=== PATIENT | male | born 1980 | race Caucasian/White ===

== ENCOUNTER 2019-05-04 01:43 | Observation (INO) | payer SELFPAY ==
[~2019-05-04] VITALS: Ht 182.9 cm; Wt 88.5 kg
[~2019-05-04 01:43] MED LIST: ASPIRIN325 MG PO; CATAPRES0.3 MG PO; CLONIDINE HCL0.1 MG PO; EFFIENT10 MG PO; HYDRALAZINE HCL25 MG PO; HYDROCHLOROTHIA25 MG PO; LIPITOR20 MG PO; METOPROLOL TART50 MG PO; NITROGLYCERIN1 EAC1 TOP; NORVASC10 MG PO; PROCARDIA XL90 MG PO; TENEX2 MG PO; TOPROL XL50 MG PO
--- OUTSIDE RECORDS SUMMARY | 2019-05-04 01:46 | XMS REPORT | Clinical Summary ---
Author Author [facility] Address Unknown Phone Unavailable Care Team Providers Care Lion Trainer Name Role Phone Alden Alcantara MD PCP Allergies Comments Active Allergy Reactions Severity Noted Date Nitroglycerin 03/22/2017 Medications End Date Status Medication Sig Dispensed Refills Start Date Active amLODIPine (NORVASC) 2.5 Take 1 tablet 0 07/04/ mg tablet by mouth 2 8 (two) times a day. Active carvedilol (COREG) 25 MG Take 1 tablet 2 tablet by mouth 2 8 (two) times a day. Active clonIDINE HCl (CATAPRES) Take 1 tablet 0 0.3 MG tablet by mouth 3 8 (three) times a day. Active traMADol (ULTRAM) 50 mg Take 50 mg by 0 tablet mouth 3 8 (three) times a day. Active aspirin (ECOTRIN) 325 MG Take 325 mg 0 enteric coated tablet by mouth daily. Active minoxidil (LONITEN) 2.5 Take 2.5 mg 0 MG tablet by mouth 2 (two) times a day. Active spironolactone Take 25 mg by 0 (ALDACTONE) 25 MG tablet mouth daily. Active clopidogrel (PLAVIX) 75 Take 75 mg by 0 mg tablet mouth daily. Active atorvastatin (LIPITOR) 20 Take 20 mg by 0 MG tablet mouth daily. Default OP ins Active NIFEdipine XL (PROCARDIA Take 60 mg by 0 XL) 60 MG 24 hr tablet mouth once. 08/04/2018 Discontinued (Stop Taking at Discharge) citalopram (CeleXA) 10 MG Take 1 tablet 0 tablet by mouth 8 every morning. 09/03/2018 PARoxetine (PAXIL) 20 MG Take 1 tablet 30 tablet 0 tablet (20 mg total) 8 by mouth nightly for 30 days. 08/07/2018 diazePAM (VALIUM) 2 MG Take 1 tablet 10 tablet 0 tablet (2 mg total) 8 by mouth every 8 (eight) hours as needed for anxiety for up to 3 days. 09/03/2018 minoxidil (LONITEN) 2.5 Take 2 120 tablet 0 MG tablet tablets (5 mg 8 total) by mouth 2 (two) times a day for 30 days. Active Problems Problem Noted Date Chest pain 08/03/2018 Cervical discitis 10/07/2015 Essential hypertension 10/07/2015 Herniated lumbar intervertebral disc 10/07/2015 Viral gastroenteritis 10/07/2015 Encounters Care Team Description Date Type Specialty Toni Tapia MD Kohlnhofer, Matthew, MD Chest pain, unspecified type (Primary Dx); Uncontrolled hypertension 08/03/2018 Emergency General Surgery - 08/04/2018 08/03/2018 Travel after 05/03/2018 Social History Date Tobacco Use Types Packs/Day Years Used Light Tobacco Smoker Electronic Cigarettes Smokeless Tobacco: Never Used Comments: rarely, socially Drinks/Week oz/Week Comments Alcohol Use Defer Sex Assigned at Date Recorded Not on file Industry Job Start Date Occupation Not on file Not on file Not on file Travel End Travel History Travel Start No recent travel history available. Last Filed Vital Signs Reading Time Taken Comments Vital Sign 137/86 08/04/2018 11:16 AM [employer] Blood Pressure 83 08/04/2018 3:42 PM [employer] Pulse 36.4 C (97.6 F) 08/04/2018 7:42 AM [employer] TE[employer] Temperature 16 08/04/2018 9:00 AM [employer]IOUR SUPPORT TE[employer]ER Respiratory Rate 95% 08/04/2018 11:16 AM BEHAVIOUR SUPPORT TEACHER Oxygen Saturation - - Inhaled Oxygen Concentration 102 kg (225 lb) 08/03/2018 7:11 PM [employer] TE[employer] Weight 193 cm (6' 4") 08/03/2018 7:11 PM [employer] TE[employer] Height 27.39 08/03/2018 7:11 PM [employer] TE[employer] Body Mass Index Plan of Treatment Care Team Description Date Type Specialty Alden Alcantara MD [address] [place] [address] [place] [address] [phone] 05/05/2019 Office Visit Internal Medicine Health Maintenance Due Date Last Done Comments INFLUENZA VACCINE 03/06/2019 Procedures Comments Procedure Name Priority Date/Time Associated Diagnosis TROPONIN Timed 08/04/2018 3:36 AM BEHAVIOUR SUPPORT TEACHER ESTIMATED GFR Timed 08/04/2018 3:36 AM BEHAVIOUR SUPPORT TEACHER COMPREHENSIVE METABOLIC Timed 08/04/2018 PANEL 3:36 AM BEHAVIOUR SUPPORT TEACHER HC COMPLETE BLD COUNT Timed 08/04/2018 W/AUTO DIFF 3:36 AM BEHAVIOUR SUPPORT TEACHER ECG 12-LEAD Routine 08/04/2018 12:23 AM BEHAVIOUR SUPPORT TEACHER TROPONIN Timed 08/03/2018 11:57 [address] [address] ANGIOGRAM PE CHEST STAT 08/03/2018 10:07 PM BEHAVIOUR SUPPORT TEACHER D-DIMER Routine 08/03/2018 8:40 PM BEHAVIOUR SUPPORT TEACHER XR CHEST 1 VW PORTABLE STAT 08/03/2018 7:36 PM BEHAVIOUR SUPPORT TEACHER ESTIMATED GFR STAT 08/03/2018 7:28 PM BEHAVIOUR SUPPORT TEACHER B NATRIURETIC PEPTIDE STAT 08/03/2018 7:28 PM BEHAVIOUR SUPPORT TEACHER TROPONIN STAT 08/03/2018 7:28 PM BEHAVIOUR SUPPORT TEACHER CREATINE KINASE, TOTAL STAT 08/03/2018 (CPK) 7:28 PM BEHAVIOUR SUPPORT TEACHER COMPREHENSIVE METABOLIC STAT 08/03/2018 PANEL 7:28 PM BEHAVIOUR SUPPORT TEACHER HC COMPLETE BLD COUNT STAT 08/03/2018 W/AUTO DIFF 7:28 PM BEHAVIOUR SUPPORT TEACHER ECG 12-LEAD STAT 08/03/2018 7:14 PM BEHAVIOUR SUPPORT TEACHER ECG ED PRELIMINARY Routine 08/03/2018 INTERPRETATION 7:11 PM BEHAVIOUR SUPPORT TEACHER after 05/03/2018 Results * Estimated GFR (08/04/2018 3:36 AM BEHAVIOUR SUPPORT TEACHER) Only the most recent of 2 results within the time period is included. Estimated GFR 57 (A) mL/min/1.73 m2 [place] Comment: GNOSTICISM [facility] rpretation G1 >=90 Normal or high G2 60-89Mildly decreased B1c40-44 Mildly to moderately decreased [id number] Moderately to severely decreased G4 15-29Severely decreased G5 <15Kidney failure The eGFR was calculated using the Chronic Kidney Disease Epidemiology Collaboration (CKD-EPI) equation. Interpretation is based on recommendations of the National Kidney Foundation-Kidney Disease Outcomes Quality Initiative (NKF-KDOQI) published in 2014. Specimen Plasma specimen Performing Organization Address City/[facility] Cent[facility] Phone Number [address] [place] [address] PATHOLOGY AND GENOMIC MEDICINE [address] * Troponin (08/04/2018 3:36 AM BEHAVIOUR SUPPORT TEACHER) Only the most recent of 3 results within the time period is included. [facility] Troponin <0.300 0.000 - 0.300 ng/mL [place] Comment: [facility] 0.30 - 1.49 [facility] ng/mlMay indicate increased risk of acute coronary syndrome. >=1.5 ng/ml Consistent with acute myocardial infarction. The diagnostic value of a single normal or non-diagnostic result is questionable.Serial samples at 2-6 hour intervals are required to rule out acute myocardial injury. Specimen Plasma specimen Performing Organization Address [facility] Cent[facility]ode Phone Number [address] [place] [address] PATHOLOGY AND GENOMIC MEDICINE [address] * CBC with platelet and differential (08/04/2018 3:36 AM BEHAVIOUR SUPPORT TEACHER) Only the most recent of 2 results within the time period is included. [facility] WBC 7.58 4.50 - 11.00 k/uL [facility] RBC 4.14 (L) 4.40 - 6.00 m/uL [facility] HGB 11.1 (L) 14.0 - 18.0 g/dL [facility] HCT 33.7 (L) 41.0 - 51.0 % [facility] MCV 81.4 (L) 82.0 - 100.0 fL [facility] MCH 26.8 (L) 27.0 - 34.0 pg [facility] MCHC 32.9 31.0 - 37.0 g/dL [facility] RDW - SD 42.2 37.0 - 55.0 fL [facility] MPV 9.7 8.8 - 13.2 fL [facility] Platelet count 311 150 - 400 k/uL [facility] Nucleated RBC 0.00 /100 WBC [facility] Neutrophils 69.1 (H) 39.0 - 69.0 % [facility] Lymphocytes 21.6 (L) 25.0 - 45.0 % [facility] Monocytes 6.3 0.0 - 10.0 % [facility] Eosinophils 1.6 0.0 - 5.0 % [facility] Basophils 0.5 0.0 - 1.0 % [facility] Specimen Blood Performing Organization Address City/State/Zipcode Phone Number [facility] [place] [id number] [place] [address] [place] [address] PATHOLOGY AND GENOMIC MEDICINE [address] * Comprehensive metabolic panel (08/04/2018 3:36 AM BEHAVIOUR SUPPORT TEACHER) Only the most recent of 2 results within the time period is included. Sodium 137 135 - 148 mEq/L [facility] Potassium 3.7 3.5 - 5.0 mEq/L [facility] Chloride 102 98 - 112 mEq/L [facility] CO2 21 (L) 24 - 31 mEq/L [facility] Anion gap 14@ANIO 7 - 15 mEq/L [facility] BUN 18 6 - 20 mg/dL [facility] Creatinine 1.50 (H) 0.70 - 1.20 mg/dL [facility] Glucose 162 (H) 65 - 99 mg/dL [facility] Calcium 9.0 8.3 - 10.2 mg/dL [facility] Protein 7.3 6.3 - 8.3 g/dL [place] Comment: [facility] 4.6-7.0 g/dL 1 week 4.4-7.6 g/dL 7 months-1year 5.1-7.3 g/dL 1-2 years5.6-7 .5 g/dL >3 years6.0-8 .0 g/dL 18-150 6.3-8.3 g/dL Albumin 4.1 3.5 - 5.0 g/dL [facility] A/G ratio 1.3 0.7 - 3.8 [facility] Alkaline 96 40 - 129 U/L [place] phosphatase [facility] AST 18 10 - 50 U/L [facility] ALT 18 5 - 50 U/L [facility] Total bilirubin 0.3 0.0 - 1.2 mg/dL [facility] Specimen Plasma specimen Performing Organization Address City/[facility] Centercode Phone Number [place] [address] [place] [address] PATHOLOGY AND GENOMIC MEDICINE [facility] [id number] [place] [address] [place] [address] [facility] * ECG 12 lead (08/04/2018 12:23 AM BEHAVIOUR SUPPORT TEACHER) Only the most recent of 2 results within the time period is included. Ventricular 69 [facility] rate Atrial rate 69 [facility] NM interval 176 [facility] QRSD interval 82 [facility] QT interval 424 [facility] QTC interval 454 [facility] P axis 1 40 [facility] QRS axis 1 -21 [facility] T wave axis 171 [facility] EKG impression Normal sinus rhythm with sinus H MUSE arrhythmia-Left ventricular hypertrophy with repolarization abnormality-possible lateral ischemia-Abnormal ECG-In automated comparison with ECG of 03-AUG-2018 19:14,-premature ventricular complexes are no longer present-Vent. rate has decreased BY56 BPM-ST no longer depressed in Anterior leads-Nonspecific T wave abnormality now evident in Inferior leads-T wave inversion more evident in Lateral leads- Specimen Narrative Performed At Performing Organization Address City/[facility] Centercode Phone Number [facility] [address] [employer] [address] [place] [address] * CT Angiogram Pe Chest (08/03/2018 10:07 PM BEHAVIOUR SUPPORT TEACHER) Specimen Narrative Performed At EXAMINATION:CT ANGIOGRAM PE CHEST [facility] CLINICAL HISTORY: PE suspectedintermediate probpositive D-dimer TECHNIQUE:CT angiographic images of the chest were obtained during intravenous administration of iodinated contrast. Computerized reformatted images and 3-D MIP images were also obtained and archived (CT pulmonary embolus protocol).CT scans are performed using radiation dose reduction techniques.Technical factors are evaluated and adjusted to ensure appropriate moderation of exposure.Automated dose management technology is applied to adjust radiation exposure while achieving a diagnostic quality image. COMPARISON:None. Findings: There are no filling defects within the pulmonary arterial system to suggest a pulmonary embolus. Evaluation for dissection is suboptimal on this phase of contrast. No aneurysm is seen. No consolidation or pleural effusion is seen. Small or trace pericardial effusion is noted. No pulmonary mass or nodule is seen. No mediastinal hematoma or lymphadenopathy is seen. Visualized upper abdomen shows no acute abnormality. IMPRESSION: 1. No evidence of pulmonary embolus. 2. Small or trace pericardial effusion. 3. Otherwise no acute abnormality identified in the chest [facility]-[id number] Procedure Note Interface, Radiology Results Incoming - 08/03/2018 10:24 PM BEHAVIOUR SUPPORT TEACHER EXAMINATION: CT ANGIOGRAM PE CHEST CLINICAL HISTORY: PE suspected intermediate prob positive D-dimer TECHNIQUE: CT angiographic images of the chest were obtained during intravenous administration of iodinated contrast. Computerized reformatted images and 3-D MIP images were also obtained and archived (CT pulmonary embolus protocol). CT scans are performed using radiation dose reduction techniques. Technical factors are evaluated and adjusted to ensure appropriate moderation of exposure. Automated dose management technology is applied to adjust radiation exposure while achieving a diagnostic quality image. COMPARISON: None. Findings: There are no filling defects within the pulmonary arterial system to suggest a pulmonary embolus. Evaluation for dissection is suboptimal on this phase of contrast. No aneurysm is seen. No consolidation or pleural effusion is seen. Small or trace pericardial effusion is noted. No pulmonary mass or nodule is seen. No mediastinal hematoma or lymphadenopathy is seen. Visualized upper abdomen shows no acute abnormality. IMPRESSION: 1. No evidence of pulmonary embolus. 2. Small or trace pericardial effusion. 3. Otherwise no acute abnormality identified in the chest [facility]-[id number] Performing Organization Address City/State/Zipcode Phone Number [facility] [address] [place] [address] * D-dimer (08/03/2018 8:40 PM BEHAVIOUR SUPPORT TEACHER) D-dimer 0.41 (H) 0.00 - 0.40 ug/mL [place] Comment: U [facility] Units are ug/ml Fibrinogen [facility] Unit. When combined with low clinical probability, D-dimer results of less than 0.5 ug/ml FEU have a good negativepredictive value in excluding PE or DVT. For D-dimer results greater than 0.5ug/ml FEU further testing is indicated if PE or DVT is suspectedclinically. Elevated D-dimer results have been reported in DVT, PE, and DIC cases and may indicate the presence of a clot. D-dimer results may be elevated due to old age, , inflammatory diseases, trauma, post-operative states, sepsis, and malignancies. Specimen Blood Performing Organization Address [facility] Centercode Phone Number [address] [place] [address] PATHOLOGY AND GENOMIC MEDICINE [address] * XR Chest 1 Vw Portable (08/03/2018 7:36 PM BEHAVIOUR SUPPORT TEACHER) Specimen Narrative Performed At EXAMINATION:XR CHEST 1 VW PORTABLE [facility] CLINICAL HISTORY:Shortness of breath COMPARISON:01/02/2013 IMPRESSION: Heart and mediastinum stable. Metal fragments are again noted in the left chest wall. No acute lung infiltrates are seen. [facility]-[id number] Procedure Note Interface, Radiology Results Incoming - 08/03/2018 7:50 PM BEHAVIOUR SUPPORT TEACHER EXAMINATION: XR CHEST 1 VW PORTABLE CLINICAL HISTORY: Shortness of breath COMPARISON: 01/02/2013 IMPRESSION: Heart and mediastinum stable. Metal fragments are again noted in the left chest wall. No acute lung infiltrates are seen. [facility]-[id number] Performing Organization Address City/[facility]/Zipcode Phone Number [facility] [address] [place] [address] * B natriuretic peptide (08/03/2018 7:28 PM BEHAVIOUR SUPPORT TEACHER) BNP 37 0 - 100 pg/mL [facility] Specimen Blood Performing Organization Address City/[facility]/Zipcode Phone Number [address] [place] [id number] PATHOLOGY AND GENOMIC MEDICINE [facility] [address] * Creatine kinase, total (CPK) (08/03/2018 7:28 PM BEHAVIOUR SUPPORT TEACHER) Creatine kinase 225 39 - 308 U/L [facility] Specimen Plasma specimen Performing Organization Address City/State/Zipcode Phone Number [facility] [place] [id number] [place] [address] [place] [address] PATHOLOGY AND GENOMIC MEDICINE [facility] [id number] [place] [address] * ECG ED Preliminary Interpretation - Not an Order (08/03/2018 7:11 PM BEHAVIOUR SUPPORT TEACHER) Narrative Performed At Toni Tapia MD 08/03/2018 10:31 PM ECG ED Preliminary Interpretation - Not an Order Performed by: Toni Tapia MD Authorized by: Toni Tapia MD ECG reviewed by ED Physician in the absence of a destination imagination coordinator: yes ([id number]) Interpretation: Interpretation: abnormal Rate: ECG rate:125 ECG rate assessment: tachycardic Rhythm: Rhythm: sinus tachycardia Ectopy: Ectopy: none QRS: QRS axis:Left Conduction: Conduction: normal ST segments: ST segments:Non-specific T waves: T waves: non-specific Other findings: Other findings: LVH after 05/03/2018 Advance Directives For more information, please contact: [phone] Patient Sales Consulting Director Explanation Type Date Recorded Advance Directives, Living Will and Medical Power of Charge Out Clerk Advance Directives, Living Will and Medical Power of Charge Out Clerk Date Inactivated Comments Code Status Date Activated 08/04/2018 9:19 PM Full Code 08/03/2018 11:22 PM Code Status decision reached by: Patient
--- OUTSIDE RECORDS SUMMARY | 2019-05-04 01:46 | XMS REPORT ---
Author [facility] Address Unknown Phone Unavailable Care Team Providers Care Instructor Programmable Controllers Name Role Phone Unavailable Unavailable Payers Payer Name Policy Type Policy Number Effective Date Expiration Date Problems This patient has no known problems. Allergies, Adverse Reactions, Alerts Allergy Name Allergy Type Status Severity Reaction(s) Onset Date Inactive Date Treating Clinician Comments nitroglycerin DA Active U 2017-03-22 00:00:00 Medications This patient has no known medications. Encounters Start Date/Time End Date/Time Encounter Type Admission Type Attending Clinicians [facility] Care Department Encounter ID 2019-04-08 20:45:00 2019-04-08 20:45:00 Outpatient E [facility] [id number] 2019-03-14 21:45:00 2019-03-14 21:45:00 Outpatient E [facility] [id number] 2019-02-07 16:49:00 2019-02-07 16:49:00 Emergency E [facility] [id number] 2019-01-13 18:32:00 2019-01-13 15:36:00 Inpatient E [facility] [id number] 2018-12-24 16:26:00 2018-12-24 16:26:00 Outpatient E [facility] [id number]
[2019-05-04] MEDS ORDERED: SODIUM CHLORIDE 0.9% 1000ML 1,000 ML IV STA (01:52)
[2019-05-04] MEDS ORDERED: ASPIRIN 81 MG CHEW TAB PO ONE ×2 (02:00→04:00)
[2019-05-04 02:35] LABS: BASOPHILS # (AUTO) 0.1 (0.0-0.1); BASOPHILS % 0.7 % (0.0-1.0); EOSINOPHILS # (AUTO) 0.1 (0.0-0.4); EOSINOPHILS % 0.7 % (0.0-6.0); HEMOGLOBIN 12.3 g/dL (14.0-18.0); LYMPHOCYTES # (AUTO) 1.6 (1.0-3.2); LYMPHOCYTES % 18.3 % (18.0-39.1); MEAN CORPUSCULAR HEMOGLOBIN 26.7 pg (28-32); MEAN CORPUSCULAR HGB CONC 35.1 g/dL (31-35); MEAN CORPUSCULAR VOLUME 76.1 fL (81-99); MONOCYTES # (AUTO) 0.4 (0.2-0.8); MONOCYTES % 4.3 % (4.4-11.3); NEUTROPHILS # (AUTO) 6.4 (2.1-6.9); NEUTROPHILS % 75.4 % (38.7-80.0); PLATELET COUNT 484 x10e3/uL (140-360); RED CELL DISTRIBUTION WIDTH 14.7 % (11.7-14.4)
[2019-05-04 02:49] LABS: ALANINE AMINOTRANSFERASE 17 IU/L (0-55); ALBUMIN 3.7 g/dL (3.5-5.0); ALBUMIN/GLOBULIN RATIO 0.9 (0.8-2.0); ALKALINE PHOSPHATASE 111 IU/L (40-150); BLOOD UREA NITROGEN 11 mg/dL (7-26); BUN/CREATININE RATIO 6 (6-25); CALCIUM 9.9 mg/dL (8.4-10.2); CARBON DIOXIDE 20 mmol/L (22-29); CHLORIDE 102 mmol/L (98-107); CREATINE KINASE 49 IU/L (30-200); CREATININE, SERUM 1.74 mg/dL (0.72-1.25); EST GLOMERULAR FILTRATION RATE 43 ML/MIN (60-); GLUCOSE 204 mg/dL (74-118); SODIUM 138 mmol/L (136-145)
--- NOTE | 2019-05-04 03:02 | Diagnostic Imaging Report ---
EXAMINATION: CHEST SINGLE (PORTABLE) INDICATION: ^ERMD ORDER ^[id number] ^0217 ^Y COMPARISON: 03/05/2015 FINDINGS: AP view TUBES and LINES: None. LUNGS: Lungs are well inflated. There is no evidence of pneumonia or pulmonary edema. Metallic fragments projecting over left lung. Minimal left upper lobe scarring, unchanged. PLEURA: No pleural effusion or pneumothorax. HEART AND MEDIASTINUM: The cardiomediastinal silhouette is mildly prominent on this AP view.. BONES AND SOFT TISSUES: No acute osseous lesion. Soft tissues are unremarkable. UPPER ABDOMEN: No free air under the diaphragm. IMPRESSION: No acute thoracic abnormality. Signed by: Dr. Bonilla Uribe MD on 05/04/2019 2:58 AM
[2019-05-04] MEDS ORDERED: ONDANSETRON HCL INJ 2MG/ML 2ML 2 MG/ML VIAL ONE (03:09)
[2019-05-04] MEDS ORDERED: MORPHINE SULFATE INJ 4 MG/ML INJ 1ML ONE (03:18)
[2019-05-04] MEDS ORDERED: MORPHINE SULFATE 2 MG/ML SYR 1ML ONE (03:19)
[2019-05-04] MEDS ORDERED: ONDANSETRON HCL INJ 2MG/ML 2ML 2 MG/ML VIAL IV STA (03:28)
[2019-05-04] MEDS ORDERED: MORPHINE SULFATE INJ 4 MG/ML INJ 1ML IV ONE (03:30)
--- OUTSIDE RECORDS SUMMARY | 2019-05-04 03:57 | XMS REPORT | Clinical Summary ---
Author Author [facility] Address Unknown Phone Unavailable Care Team Providers Care Cuff Slitter Name Role Phone Alden Alcantara MD PCP [...] Comments Vital Sign 137/86 08/04/2018 11:16 AM BUSINESS APPLICATIONS MANAGER Blood Pressure 83 08/04/2018 3:42 PM BUSINESS APPLICATIONS MANAGER Pulse 36.4 C (97.6 F) 08/04/2018 7:42 AM BUSINESS APPLICATIONS MANAGER Temperature 16 08/04/2018 9:00 AM BUSINESS APPLICATIONS MANAGER Respiratory Rate 95% 08/04/2018 11:16 AM BUSINESS APPLICATIONS MANAGER Oxygen Saturation - - Inhaled Oxygen Concentration 102 kg (225 lb) 08/03/2018 7:11 PM BUSINESS APPLICATIONS MANAGER Weight 193 cm (6' 4") 08/03/2018 7:11 PM BUSINESS APPLICATIONS MANAGER Height 27.39 08/03/2018 7:11 PM BUSINESS APPLICATIONS MANAGER Body Mass Index Plan of Treatment Care Team Description Date Type Specialty Alden Alcantara MD [address] [place] [address] [place] [address] [phone] 05/05/2019 Office Visit Internal Medicine Health Maintenance Due Date Last Done Comments INFLUENZA VACCINE 03/06/2019 Procedures Comments Procedure Name Priority Date/Time Associated Diagnosis TROPONIN Timed 08/04/2018 3:36 AM BUSINESS APPLICATIONS MANAGER ESTIMATED GFR Timed 08/04/2018 3:36 AM BUSINESS APPLICATIONS MANAGER COMPREHENSIVE METABOLIC Timed 08/04/2018 PANEL 3:36 AM BUSINESS APPLICATIONS MANAGER HC COMPLETE BLD COUNT Timed 08/04/2018 W/AUTO DIFF 3:36 AM BUSINESS APPLICATIONS MANAGER ECG 12-LEAD Routine 08/04/2018 12:23 AM BUSINESS APPLICATIONS MANAGER TROPONIN Timed 08/03/2018 11:57 [address] APPLICATIONS [address] ANGIOGRAM PE CHEST STAT 08/03/2018 10:07 PM BUSINESS APPLICATIONS MANAGER D-DIMER Routine 08/03/2018 8:40 PM BUSINESS APPLICATIONS MANAGER XR CHEST 1 VW PORTABLE STAT 08/03/2018 7:36 PM BUSINESS APPLICATIONS MANAGER ESTIMATED GFR STAT 08/03/2018 7:28 PM BUSINESS APPLICATIONS MANAGER B NATRIURETIC PEPTIDE STAT 08/03/2018 7:28 PM BUSINESS APPLICATIONS MANAGER TROPONIN STAT 08/03/2018 7:28 PM BUSINESS APPLICATIONS MANAGER CREATINE KINASE, TOTAL STAT 08/03/2018 (CPK) 7:28 PM BUSINESS APPLICATIONS MANAGER COMPREHENSIVE METABOLIC STAT 08/03/2018 PANEL 7:28 PM BUSINESS APPLICATIONS MANAGER HC COMPLETE BLD COUNT STAT 08/03/2018 W/AUTO DIFF 7:28 PM BUSINESS APPLICATIONS MANAGER ECG 12-LEAD STAT 08/03/2018 7:14 PM BUSINESS APPLICATIONS MANAGER ECG ED PRELIMINARY Routine 08/03/2018 INTERPRETATION 7:11 PM BUSINESS APPLICATIONS MANAGER after 05/03/2018 Results * Estimated GFR (08/04/2018 3:36 AM BUSINESS APPLICATIONS MANAGER) Only the most recent of 2 results within the time period is included. Estimated GFR 57 (A) mL/min/1.73 m2 [place] Comment: [facility] rpretation G1 >=90 Normal or high G2 60-89Mildly decreased [id number] Mildly to moderately decreased D2j75-90 Moderately to severely decreased G4 15-29Severely decreased G5 <15Kidney failure The eGFR was calculated using the Chronic Kidney Disease Epidemiology Collaboration (CKD-EPI) equation. Interpretation is based on recommendations of the National Kidney Foundation-Kidney Disease Outcomes Quality Initiative (NKF-KDOQI) published in 2014. Specimen Plasma specimen Performing Organization Address City/[facility] Phone Number [address] [place] [address] PATHOLOGY AND GENOMIC MEDICINE [address] * Troponin (08/04/2018 3:36 AM BUSINESS APPLICATIONS MANAGER) Only the most recent of 3 results within the time period is included. [facility] Troponin <0.300 0.000 - 0.300 ng/mL [place] Comment: [facility] 0.30 - 1.49 [facility] ng/mlMay indicate increased risk of acute coronary syndrome. >=1.5 ng/ml Consistent with acute myocardial infarction. The diagnostic value of a single normal or non-diagnostic result is questionable.Serial samples at 2-6 hour intervals are required to rule out acute myocardial injury. Specimen Plasma specimen Performing Organization Address [facility] Phone Number [address] [place] [address] PATHOLOGY AND GENOMIC MEDICINE [address] * CBC with platelet and differential (08/04/2018 3:36 AM BUSINESS APPLICATIONS MANAGER) Only the most recent of 2 results within the time period is included. [facility] WBC 7.58 4.50 - 11.00 k/uL [facility] RBC 4.14 (L) 4.40 - 6.00 m/uL [facility] HGB 11.1 (L) 14.0 - 18.0 g/dL [facility] HCT 33.7 (L) 41.0 - 51.0 % [facility] MCV 81.4 (L) 82.0 - 100.0 fL [facility] MCH 26.8 (L) 27.0 - 34.0 pg [facility] MCHC 32.9 31.0 - 37.0 g/dL [facility] RDW - SD 42.2 37.0 - 55.0 fL [facility] MPV 9.7 8.8 - 13.2 fL [facility] Platelet count 311 150 - 400 k/uL [facility] Nucleated RBC 0.00 /100 WBC [facility] Neutrophils 69.1 (H) 39.0 - 69.0 % [facility] Lymphocytes 21.6 (L) 25.0 - 45.0 % [facility] Monocytes 6.3 0.0 - 10.0 % [facility] Eosinophils 1.6 0.0 - 5.0 % [facility] Basophils 0.5 0.0 - 1.0 % [facility] Specimen Blood Performing Organization Address City/State/Zipcode Phone Number [facility] [place] [id number] [place] [address] [place] [address] PATHOLOGY AND GENOMIC MEDICINE [address] * Comprehensive metabolic panel (08/04/2018 3:36 AM BUSINESS APPLICATIONS MANAGER) Only the most recent of 2 results within the time period is included. Sodium 137 135 - 148 mEq/L [facility] Potassium 3.7 3.5 - 5.0 mEq/L [facility] Chloride 102 98 - 112 mEq/L [facility] CO2 21 (L) 24 - 31 mEq/L [facility] Anion gap 14@ANIO 7 - 15 mEq/L [facility] BUN 18 6 - 20 mg/dL [facility] Creatinine 1.50 (H) 0.70 - 1.20 mg/dL [facility] Glucose 162 (H) 65 - 99 mg/dL [facility] Calcium 9.0 8.3 - 10.2 mg/dL [facility] Protein 7.3 6.3 - 8.3 g/dL [place] Comment: [facility] 4.6-7.0 g/dL 1 week 4.4-7.6 g/dL 7 months-1year 5.1-7.3 g/dL 1-2 years5.6-7 .5 g/dL >3 years6.0-8 .0 g/dL 18-150 6.3-8.3 g/dL Albumin 4.1 3.5 - 5.0 g/dL [facility] A/G ratio 1.3 0.7 - 3.8 [facility] Alkaline 96 40 - 129 U/L [place] phosphatase [facility] AST 18 10 - 50 U/L [facility] ALT 18 5 - 50 U/L [facility] Total bilirubin 0.3 0.0 - 1.2 mg/dL [facility] Specimen Plasma specimen Performing Organization Address City/[facility] Centercode Phone Number [place] [address] [place] [address] PATHOLOGY AND GENOMIC MEDICINE [facility] [id number] [place] [address] [place] [address] [facility] * ECG 12 lead (08/04/2018 12:23 AM BUSINESS APPLICATIONS MANAGER) Only the most recent of 2 results within the time period is included. Ventricular 69 [facility] rate Atrial rate 69 [facility] [place] interval 176 [facility] QRSD interval 82 [...] Specimen Narrative Performed At Performing Organization Address City/[facility] Phone Number [facility] [employer] [address] [place] [address] * CT Angiogram Pe Chest (08/03/2018 10:07 PM BUSINESS APPLICATIONS MANAGER) Specimen Narrative Performed At EXAMINATION:[facility]: PE suspectedintermediate probpositive [...] no acute abnormality identified in the chest [facility]-[id number] Procedure Note Interface, Radiology Results Incoming - 08/03/2018 10:24 PM BUSINESS APPLICATIONS MANAGER EXAMINATION: CT ANGIOGRAM PE CHEST CLINICAL HISTORY: [...] no acute abnormality identified in the chest [facility]-[id number] Performing Organization Address City/State/Zipcode Phone Number [facility] [address] [place] [address] * D-dimer (08/03/2018 8:40 PM BUSINESS APPLICATIONS MANAGER) D-dimer 0.41 (H) 0.00 - 0.40 ug/mL [place] Comment: U [facility] Units are ug/ml Fibrinogen [facility] Unit. When combined with low clinical probability, [...] and malignancies. Specimen Blood Performing Organization Address [facility] Centercode Phone Number [address] [place] [address] PATHOLOGY AND GENOMIC MEDICINE [address] * XR Chest 1 Vw Portable (08/03/2018 7:36 PM BUSINESS APPLICATIONS MANAGER) Specimen Narrative Performed At EXAMINATION:XR CHEST 1 VW PORTABLE [facility] CLINICAL HISTORY:Shortness of breath COMPARISON:01/02/2013 IMPRESSION: Heart and mediastinum stable. Metal fragments are again noted in the left chest wall. No acute lung infiltrates are seen. [facility]-[id number] Procedure Note Interface, Radiology Results Incoming - 08/03/2018 7:50 PM BUSINESS APPLICATIONS MANAGER EXAMINATION: XR CHEST 1 VW PORTABLE CLINICAL HISTORY: Shortness of breath COMPARISON: 01/02/2013 IMPRESSION: Heart and mediastinum stable. Metal fragments are again noted in the left chest wall. No acute lung infiltrates are seen. [facility]-[id number] Performing Organization Address City/[facility]/Zipcode Phone Number [facility] [address] [place] [address] * B natriuretic peptide (08/03/2018 7:28 PM BUSINESS APPLICATIONS MANAGER) BNP 37 0 - 100 pg/mL [facility] Specimen Blood Performing Organization Address City/[facility]/Zipcode Phone Number [address] [place] [id number] PATHOLOGY AND GENOMIC MEDICINE [facility] [address] [place] [address] * Creatine kinase, total (CPK) (08/03/2018 7:28 PM BUSINESS APPLICATIONS MANAGER) Creatine kinase 225 39 - 308 U/L [facility] Specimen Plasma specimen Performing Organization Address City/State/Zipcode Phone Number [facility] [place] [id number] [place] [address] [place] [address] PATHOLOGY AND GENOMIC MEDICINE [facility] [id number] [place] [address] * ECG ED Preliminary Interpretation - Not an Order (08/03/2018 7:11 PM BUSINESS APPLICATIONS MANAGER) Narrative Performed At Toni Tapia MD 08/03/2018 10:31 PM ECG ED Preliminary Interpretation - Not an Order Performed by: Toni Tapia MD Authorized by: Toni Tapia MD ECG reviewed by ED Physician in the absence of a home health nurse licensed practical: yes ([id number]) Interpretation: Interpretation: abnormal Rate: ECG rate:125 ECG rate assessment: tachycardic Rhythm: Rhythm: sinus tachycardia Ectopy: Ectopy: none QRS: QRS axis:Left Conduction: Conduction: normal ST segments: ST segments:Non-specific T waves: T waves: non-specific Other findings: Other findings: LVH after 05/03/2018 Advance Directives For more information, please contact: [phone] Patient [employer] Explanation Type Date Recorded Advance Directives, Living Will and Medical Power of Manager Medicare Marketing Advance Directives, Living Will and Medical Power of Manager Medicare Marketing Date Inactivated Comments Code Status Date Activated 08/04/2018 9:19 PM Full Code 08/03/2018 11:22 PM Code Status decision reached by: Patient
[2019-05-04] MEDS ORDERED: METOPROLOL TARTRATE 25 MG TAB PO SCH (04:00)
--- NOTE | 2019-05-04 04:55 | NUR ---
PT STATES THAT HE DOESN'T WANT TO WAIT FOR A BED. AND THAT HIS DOCTORS ARE AT [place]. GOVERNMENT EMPLOYEE WAS NOTIFIED AND A BED WAS ASSIGNED. TOLD PT ABOUT BED ASSIGNMENT. PT STATES THAT HE DOES NOT WANT TO STAY HERE. AMA WAS SIGNED. LT HAND 20G PIV DISCONTINUED, CATH INTACT. SITE WITHOUT COMPLICATIONS. PT AMBULATED OUT TO PRIVATE CAR WITH SPOUSE, NO S/S DISTRESS NOTED.
[2019-05-04] MEDS ORDERED: ASPIRIN 81 MG ENTERIC COATED PO SCH (09:00)
== END 2019-05-04 05:00 | disposition left against medical advice (07) ==
LOC: ER 01:43 → EDBD 01:43 → ERHOLD 03:54
PROVIDERS: ADMIT Family Medicine; ATTEND Family Medicine
DX: R07.9 Chest pain, unspecified (principal); I12.0 Hypertensive chronic kidney disease with stage 5 chronic kidney disease or end stage renal disease; N18.6 End stage renal disease; Z99.2 Dependence on renal dialysis; E78.5 Hyperlipidemia, unspecified; I25.2 Old myocardial infarction; G47.00 Insomnia, unspecified; I25.10 Atherosclerotic heart disease of native coronary artery without angina pectoris; Z95.5 Presence of coronary angioplasty implant and graft
CPT/HCPCS: 36415; 71045; 80053; 82550; 82553; 83880; 84484; 85025; 93005; 99284; G0378; J2270 ×2; J2405; J7030

== ENCOUNTER 2021-11-28 23:55 | Inpatient (IN) | payer SELFPAY ==
[~2021-11-28] VITALS: Ht 182.9 cm; Wt 79.4 kg
[~2021-11-28 23:55] MED LIST changes: +CEFDINIR300 MG PO; +KETOROLAC TROME10 MG PO
[2021-11-28] MEDS ORDERED: ONDANSETRON HCL INJ 2MG/ML 2ML 2 MG/ML VIAL IV STA (23:59)
[2021-11-29] VITALS (19 sets, daily range): BP systolic 139–185; BP diastolic 95–126
[2021-11-29] MEDS ORDERED: Morphine 4mg Syringe 4 MG/ML INJ IV ONE
[2021-11-29] MEDS ORDERED: ASPIRIN 325 MG TAB PO STA
[2021-11-29] MEDS ORDERED: Morphine 4mg Syringe 4 MG/ML INJ ONE ×2 (00:12→11:42)
[2021-11-29] MEDS ORDERED: ONDANSETRON HCL INJ 2MG/ML 2ML 2 MG/ML VIAL ONE (00:12)
[2021-11-29] MEDS ORDERED: SODIUM CHLORIDE 0.9% 1000ML 1,000 ML ONE ×2 (00:13→08:45)
[2021-11-29 00:16] LABS: BASOPHILS # (AUTO) 0.1 (0.0-0.1); BASOPHILS % 0.9 % (0.0-1.0); EOSINOPHILS # (AUTO) 0.3 (0.0-0.4); EOSINOPHILS % 3.2 % (0.0-6.0); HEMATOCRIT 28.8 % (38.2-49.6); HEMOGLOBIN 8.2 g/dL (14.0-18.0); LYMPHOCYTES # (AUTO) 1.5 (1.0-3.2); LYMPHOCYTES % 14.4 % (18.0-39.1); MEAN CORPUSCULAR HEMOGLOBIN 21.8 pg (28-32); MEAN CORPUSCULAR HGB CONC 28.5 g/dL (31-35); MEAN CORPUSCULAR VOLUME 76.4 fL (81-99); MONOCYTES # (AUTO) 0.4 (0.2-0.8); NEUTROPHILS % 77.1 % (38.7-80.0); PLATELET COUNT 514 x10e3/uL (140-360); RED BLOOD COUNT 3.77 x10e6/uL (4.3-5.7); RED CELL DISTRIBUTION WIDTH 18.6 % (11.7-14.4)
[2021-11-29 00:25] LABS: INR 1.01; PROTHROMBIN TIME 14.2 seconds (11.9-14.5)
[2021-11-29 00:26] LABS: AMPHETAMINES SCREEN,URINE NEGATIVE (NEGATIVE); BENZODIAZEPINES SCREEN,URINE NEGATIVE (NEGATIVE); PHENCYCLIDINE SCREEN,URINE NEGATIVE (NEGATIVE)
[2021-11-29] MEDS ORDERED: HYDRALAZINE HCL 20 MG/ML VIAL IV STA (00:27)
[2021-11-29 00:32] LABS: POTASSIUM 4.1 mmol/L (3.5-5.1)
[2021-11-29 00:34] LABS: ALBUMIN 3.9 g/dL (3.5-5.0); ALBUMIN/GLOBULIN RATIO 0.9 (0.8-2.0); ANION GAP 16.1 mmol/L (8-16); CALCIUM 9.3 mg/dL (8.4-10.2); CREATININE, SERUM 1.8 mg/dL (0.72-1.25)
[2021-11-29 00:39] LABS: BACTERIA,URINE FEW /HPF; CLARITY,URINE CLEAR (CLEAR); COLOR,URINE YELLOW (YELLOW); EPITHELIAL CELLS,URINE FEW /LPF; KETONES,URINE NEGATIVE (NEGATIVE); LEUKOCYTE ESTERASE ,URINE NEGATIVE (NEGATIVE); NITRITE,URINE NEGATIVE (NEGATIVE); PROTEIN,URINE DIPSTICK 1+ (NEGATIVE); URINE UROBILINOGEN 0.2 mg/dL (0.2 - 1); WBC,URINE (MAN) 0-5 /HPF (0-5)
[2021-11-29 00:40] LABS: CREATINE KINASE MB 2.7 ng/mL (0-5.0)
[2021-11-29] MEDS ORDERED: FENTANYL CITRATE/PF 100MCG/2 ML INJ IV STA (00:42)
[2021-11-29] MEDS ORDERED: NICARDIPINE 20MG/200ML PREMIX 200 ML IV SCH (00:45)
[2021-11-29] MEDS ORDERED: FUROSEMIDE INJ 10 MG/ML 4 ML VIAL IV SCH (01:00)
[2021-11-29] MEDS ORDERED: Morphine 4mg Syringe 4 MG/ML INJ IV PRN ×2 (02:00→11:15)
[2021-11-29] MEDS ORDERED: HEPARIN 25,000 UNIT 900 UNIT in DEXTROSE 5% 250ML 250 ML IV SCH (02:00)
[2021-11-29] MEDS ORDERED: HEPARIN SOD (PORCINE) 5,000 UNIT/ML VIAL IV ONE (02:00)
[2021-11-29] MEDS ORDERED: ONDANSETRON HCL INJ 2MG/ML 2ML 2 MG/ML VIAL IV PRN (02:00)
[2021-11-29 02:48] LABS: CREATINE KINASE MB 2.4 ng/mL (0-5.0)
[2021-11-29] MEDS ORDERED: HYDROMORPHONE 2MG/ML 2 MG/ML ML ONE (03:52)
[2021-11-29] MEDS ORDERED: HEPARIN 25,000 UNIT DRIP IV ONE (03:54)
[2021-11-29] MEDS ORDERED: HYDROMORPHONE 1MG/1ML INJ IV PRN (04:15)
[2021-11-29] MEDS ORDERED: IOPAMIDOL 370 MG/ML 100 ML INFUS..BTL INJ ONE ×3 (06:26→10:09)
[2021-11-29] MEDS ORDERED: HYDROMORPHONE 1MG/1ML INJ IV STA (08:04)
[2021-11-29] MEDS ORDERED: NITROGLYCERIN/D5W 200 MCG/ML 250 ML ONE (08:45)
[2021-11-29] MEDS ORDERED: HEPARIN SOD (PORCINE) 1000 UNIT/ML 30ML ONE (08:45)
[2021-11-29] MEDS ORDERED: ACETAMINOPHEN 325 MG TAB PO PRN (08:45)
[2021-11-29] MEDS ORDERED: LIDOCAINE HCL 2% LOCAL 20 ML VIAL ONE (08:45)
[2021-11-29] MEDS ORDERED: HEPARIN SOD/SOD CHLORIDE 2,000 ML ONE (08:45)
[2021-11-29] MEDS ORDERED: NITROGLYCERIN 0.4 MG SUBL SL PRN (09:00)
[2021-11-29] MEDS ORDERED: MIDAZOLAM HCL 2 MG/2 ML VIAL ONE ×2 (09:02→10:06)
[2021-11-29] MEDS ORDERED: VERAPAMIL HCL 2.5 MG/ML 2 ML VIAL ONE (09:02)
[2021-11-29] MEDS ORDERED: FENTANYL CITRATE/PF 100MCG/2 ML INJ ONE (09:03)
[2021-11-29 10:09] LABS: CREATININE,URINE RANDOM 89.34 mg/dL (63-166); TOTAL PROTEIN, URINE 30.8 mg/dL (1-14)
[2021-11-29] MEDS ORDERED: TICAGRELOR 90 MG TABLET ONE (10:24)
[2021-11-29] MEDS ORDERED: COREG12.5 MG PO (12:31)
[2021-11-29] MEDS ORDERED: HYDRALAZINE HCL 20 MG/ML VIAL IV PRN (13:45)
[2021-11-29] MEDS ORDERED: CLONIDINE HCL 0.1 MG TAB ONE (13:58)
[2021-11-29] MEDS ORDERED: HYDRALAZINE HCL 20 MG/ML VIAL ONE (14:08)
[2021-11-29] MEDS ORDERED: NICARDIPINE 20MG/200ML PREMIX 200 ML ONE (14:21)
[2021-11-29] MEDS ORDERED: CLONIDINE HCL 0.3 MG TAB PO SCH (15:00)
[2021-11-29] MEDS ORDERED: AMLODIPINE BESYLATE 5 MG TAB PO SCH (17:00)
[2021-11-29] MEDS ORDERED: CARVEDILOL 12.5 MG TAB PO SCH (17:00)
[2021-11-30] MEDS ORDERED: ASPIRIN 325 MG TAB PO SCH (09:00)
[2021-11-30] MEDS ORDERED: HYDRALAZINE HCL 100 MG TABLET PO SCH (21:00)
== END 2021-11-29 13:30 | disposition left against medical advice (07) | DRG 246 ==
LOC: ER 11-29 00:05 → ERHOLD 11-29 01:53
PROVIDERS: ADMIT Internal Medicine; ATTEND Internal Medicine
PROC: 027035Z Dilation of Coronary Artery, One Artery with Two Drug-eluting Intraluminal Devices, Percutaneous Approach (ICD-10-PCS; principal; 2021-11-29)
PROC: 4A023N7 Measurement of Cardiac Sampling and Pressure, Left Heart, Percutaneous Approach (ICD-10-PCS; 2021-11-29)
PROC: B2111ZZ Fluoroscopy of Multiple Coronary Arteries using Low Osmolar Contrast (ICD-10-PCS; 2021-11-29)
DX: T82.855A Stenosis of coronary artery stent, initial encounter (principal); I21.4 Non-ST elevation (NSTEMI) myocardial infarction; I16.1 Hypertensive emergency; I25.110 Atherosclerotic heart disease of native coronary artery with unstable angina pectoris; Z20.822 Contact with and (suspected) exposure to COVID-19; I12.9 Hypertensive chronic kidney disease with stage 1 through stage 4 chronic kidney disease, or unspecified chronic kidney disease; N18.30 Chronic kidney disease, stage 3 unspecified; D64.9 Anemia, unspecified; E78.5 Hyperlipidemia, unspecified; Z88.8 Allergy status to other drugs, medicaments and biological substances; Y71.1 Therapeutic (nonsurgical) and rehabilitative cardiovascular devices associated with adverse incidents; I25.2 Old myocardial infarction
CPT/HCPCS: 36415; 71045; 71275; 80053; 80307; 80320; 81001; 82270; 82550; 82553; 82570; 83690; 83880; 84156; 84484; 85025; 85379; 85610; 85730; 86850; 86900; 92920; 92928; 93005; 93306; 93458; 94799; 99152; 99153; 99285; C1725; C1769; C1874; C1887; J0360; J1170; J1644; J1940; J2001; J2250; J2270; J2405; J3010; J7030; Q9967; U0002

== ENCOUNTER 2022-01-17 01:56 | Observation (INO) | payer SELFPAY ==
[~2022-01-17] VITALS: Ht 182.9 cm; Wt 79.4 kg
[~2022-01-17 01:56] MED LIST changes: +COREG12.5 MG PO
[2022-01-17] MEDS ORDERED: CLONIDINE HCL 0.1 MG TAB PO ONE (02:15)
[2022-01-17] MEDS ORDERED: NICARDIPINE 20MG/200ML PREMIX 200 ML IV SCH (02:15)
[2022-01-17 02:20] LABS: BASOPHILS # (AUTO) 0.1 (0.0-0.1); BASOPHILS % 0.8 % (0.0-1.0); EOSINOPHILS # (AUTO) 0.1 (0.0-0.4); EOSINOPHILS % 1.8 % (0.0-6.0); HEMATOCRIT 25.9 % (38.2-49.6); HEMOGLOBIN 7.3 g/dL (14.0-18.0); LYMPHOCYTES # (AUTO) 0.9 (1.0-3.2); LYMPHOCYTES % 12.9 % (18.0-39.1); MEAN CORPUSCULAR HEMOGLOBIN 20.7 pg (28-32); MEAN CORPUSCULAR HGB CONC 28.2 g/dL (31-35); MEAN CORPUSCULAR VOLUME 73.4 fL (81-99); MONOCYTES # (AUTO) 0.3 (0.2-0.8); MONOCYTES % 4.1 % (4.4-11.3); NEUTROPHILS # (AUTO) 5.8 (2.1-6.9); NEUTROPHILS % 80.1 % (38.7-80.0); PLATELET COUNT 428 x10e3/uL (140-360); RED BLOOD COUNT 3.53 x10e6/uL (4.3-5.7); RED CELL DISTRIBUTION WIDTH 16.2 % (11.7-14.4)
[2022-01-17] MEDS ORDERED: CLONIDINE HCL 0.1 MG TAB ONE (02:21)
[2022-01-17] MEDS ORDERED: NICARDIPINE 20MG/200ML PREMIX 200 ML ONE (02:25)
[2022-01-17 02:38] LABS: ALBUMIN 3.7 g/dL (3.5-5.0); ALBUMIN/GLOBULIN RATIO 0.9 (0.8-2.0); ALKALINE PHOSPHATASE 86 IU/L (40-150); ANION GAP 17.7 mmol/L (8-16); BLOOD UREA NITROGEN 18 mg/dL (7-26); BUN/CREATININE RATIO 10 (6-25); CALCIUM 9.2 mg/dL (8.4-10.2); CARBON DIOXIDE 18 mmol/L (22-29); CHLORIDE 109 mmol/L (98-107); CREATININE, SERUM 1.89 mg/dL (0.72-1.25); GLUCOSE 196 mg/dL (74-118); POTASSIUM 3.7 mmol/L (3.5-5.1); SODIUM 141 mmol/L (136-145)
[2022-01-17 02:41] LABS: ALANINE AMINOTRANSFERASE < 6 IU/L (0-55)
[2022-01-17] MEDS ORDERED: Morphine 4mg INJECTION 4 MG/ML INJ IV PRN (03:15)
[2022-01-17] MEDS ORDERED: FENTANYL CITRATE/PF 100MCG/2 ML INJ ONE (03:16)
[2022-01-17] MEDS ORDERED: ONDANSETRON HCL INJ 2MG/ML 2ML 2 MG/ML VIAL ONE (03:16)
[2022-01-17] MEDS ORDERED: LACTATED RINGER'S 500 ML IV ONE (03:30)
[2022-01-17] MEDS ORDERED: HYDRALAZINE HCL 20 MG/ML VIAL ONE (03:35)
[2022-01-17] MEDS ORDERED: ONDANSETRON HCL INJ 2MG/ML 2ML 2 MG/ML VIAL IV STA (03:35)
[2022-01-17] MEDS ORDERED: HYDRALAZINE HCL 20 MG/ML VIAL IV STA (03:35)
[2022-01-17] MEDS ORDERED: IOPAMIDOL 370 MG/ML 100 ML INFUS..BTL INJ ONE (03:37)
[2022-01-17] MEDS ORDERED: SODIUM CHLORIDE 0.9% 100 ML ONE (03:37)
[2022-01-17] MEDS ORDERED: ONDANSETRON HCL INJ 2MG/ML 2ML 2 MG/ML VIAL IV PRN (03:45)
[2022-01-17] MEDS ORDERED: FENTANYL CITRATE/PF 100MCG/2 ML INJ IV ONE (03:45)
[2022-01-17] MEDS ORDERED: HYDRALAZINE HCL 20 MG/ML VIAL IV PRN (03:45)
[2022-01-17] MEDS ORDERED: SODIUM CHLORIDE 0.9% 500ML 500 ML IV ONE (04:00)
[2022-01-17] MEDS ORDERED: SODIUM CHLORIDE 0.9% 500ML 500 ML ONE (04:02)
[2022-01-17] MEDS ORDERED: HALOPERIDOL LACTATE 5 MG/ML VIAL IV ONE (04:30)
== END 2022-01-17 04:50 | disposition left against medical advice (07) ==
LOC: ER 02:07 → ERHOLD 03:05
PROVIDERS: ADMIT Family Medicine; ATTEND Family Medicine
DX: R07.9 Chest pain, unspecified (principal); I13.2 Hypertensive heart and chronic kidney disease with heart failure and with stage 5 chronic kidney disease, or end stage renal disease; N18.6 End stage renal disease; I50.9 Heart failure, unspecified; I25.2 Old myocardial infarction; E78.5 Hyperlipidemia, unspecified; G47.00 Insomnia, unspecified; I25.10 Atherosclerotic heart disease of native coronary artery without angina pectoris; Z95.5 Presence of coronary angioplasty implant and graft; Z20.822 Contact with and (suspected) exposure to COVID-19; E89.6 Postprocedural adrenocortical (-medullary) hypofunction
CPT/HCPCS: 36415; 71045; 71275; 80053; 84484; 85025; 93005; 94799; 99284; G0378; J0360; J2405; J3010; J7040; J7050; Q9967; J7120

== ENCOUNTER 2022-03-30 19:17 | Emergency (ER) | payer SELFPAY ==
[~2022-03-30] VITALS: Ht 182.9 cm; Wt 77.6 kg
[2022-03-30] MEDS ORDERED: HYDRALAZINE HCL 20 MG/ML VIAL IV STA (19:48)
[2022-03-30] MEDS ORDERED: CEFTRIAXONE 1 GM VIAL IV ONE (20:00)
[2022-03-30] MEDS ORDERED: HYDRALAZINE HCL 20 MG/ML VIAL ONE (20:29)
[2022-03-30] MEDS ORDERED: CEFTRIAXONE 1 GM VIAL ONE (20:29)
[2022-03-30] MEDS ORDERED: SODIUM CHLORIDE 0.9% 100 ML ONE (20:29)
[2022-03-30 21:02] VITALS: BP 191/111
== END 2022-03-30 21:02 | disposition left against medical advice (07) ==
LOC: FSED 19:29
DX: I16.9 Hypertensive crisis, unspecified (principal); I12.0 Hypertensive chronic kidney disease with stage 5 chronic kidney disease or end stage renal disease; N18.6 End stage renal disease; I50.9 Heart failure, unspecified; I25.2 Old myocardial infarction; Z95.5 Presence of coronary angioplasty implant and graft
CPT/HCPCS: 80048; 85025; 96374; 99283; J0360; J0696; J7050

== ENCOUNTER 2022-05-14 05:01 | Emergency (ER) | payer SELFPAY ==
[~2022-05-14] VITALS: Ht 182.9 cm; Wt 74.4 kg
[2022-05-14] MEDS ORDERED: KETOROLAC TROMETHAMINE 30 MG/ML VIAL IM STA (05:34)
[2022-05-14] MEDS ORDERED: PENICILLIN V P500 MG PO (05:44)
[2022-05-14 05:55] VITALS: BP 115/69
[2022-05-14] MEDS ORDERED: KETOROLAC TROMETHAMINE 30 MG/ML VIAL ONE (06:00)
== END 2022-05-14 05:55 | disposition home or self-care (01) ==
LOC: FSED 05:30
DX: K02.9 Dental caries, unspecified (principal); I12.0 Hypertensive chronic kidney disease with stage 5 chronic kidney disease or end stage renal disease; N18.6 End stage renal disease; I50.9 Heart failure, unspecified; E78.5 Hyperlipidemia, unspecified; G47.00 Insomnia, unspecified; I25.2 Old myocardial infarction; Z95.5 Presence of coronary angioplasty implant and graft
CPT/HCPCS: 96372; 99282; J1885

== ENCOUNTER 2022-05-27 14:24 | Emergency (ER) | payer SELFPAY ==
[~2022-05-27] VITALS: Ht 182.9 cm; Wt 74.4 kg
[~2022-05-27 14:24] MED LIST changes: +PENICILLIN V P500 MG PO
[2022-05-27] MEDS ORDERED: SODIUM CHLORIDE 0.9% 250ML 250 ML IV ONE (15:00)
[2022-05-27] MEDS ORDERED: NITROGLYCERIN 2% OINT 1 GM PKT TOP ONE (15:00)
[2022-05-27] MEDS ORDERED: HYDRALAZINE HCL 20 MG/ML VIAL IV STA ×3 (15:06→15:23)
[2022-05-27 15:07] LABS: BASOPHILS # (AUTO) 0.1 (0.0-0.1); EOSINOPHILS # (AUTO) 0.3 (0.0-0.4); EOSINOPHILS % 3.1 % (0.0-6.0); HEMATOCRIT 30.4 % (38.2-49.6); HEMOGLOBIN 8.1 g/dL (14.0-18.0); LYMPHOCYTES # (AUTO) 1.5 (1.0-3.2); LYMPHOCYTES % 13.5 % (18.0-39.1); MEAN CORPUSCULAR HEMOGLOBIN 19.8 pg (28-32); MEAN CORPUSCULAR HGB CONC 26.6 g/dL (31-35); MEAN CORPUSCULAR VOLUME 74.3 fL (81-99); MONOCYTES # (AUTO) 0.5 (0.2-0.8); NEUTROPHILS # (AUTO) 8.3 (2.1-6.9); NEUTROPHILS % 76.8 % (38.7-80.0); PLATELET COUNT 479 x10e3/uL (140-360); RED BLOOD COUNT 4.09 x10e6/uL (4.3-5.7); RED CELL DISTRIBUTION WIDTH 22.6 % (11.7-14.4)
[2022-05-27] MEDS ORDERED: ONDANSETRON HCL INJ 2MG/ML 2ML 2 MG/ML VIAL IV STA (15:08)
[2022-05-27 15:23] LABS: INR 1.12; PROTHROMBIN TIME 15.4 seconds (11.9-14.5)
[2022-05-27 15:24] LABS: PARTIAL THROMBOPLASTIN TIME 31.3 seconds (23.8-35.5)
[2022-05-27] MEDS ORDERED: NICARDIPINE 20MG/200ML PREMIX 200 ML IV SCH (15:30)
[2022-05-27 15:33] LABS: ALBUMIN 3.5 g/dL (3.5-5.0); ALBUMIN/GLOBULIN RATIO 0.9 (0.8-2.0); ANION GAP 17.2 mmol/L (8-16); CREATININE, SERUM 1.73 mg/dL (0.72-1.25); POTASSIUM 5.2 mmol/L (3.5-5.1)
[2022-05-27 15:39] LABS: CREATINE KINASE MB 2.5 ng/mL (0-5.0)
[2022-05-27] MEDS ORDERED: Morphine 4mg INJECTION 4 MG/ML INJ IV ONE ×2 (16:00→16:15)
[2022-05-27] MEDS ORDERED: ENOXAPARIN INJ 80 MG/0.8 ML SYR SC ONE (17:30)
[2022-05-27] MEDS ORDERED: ACETAMINOPHEN 325 MG TAB PO ONE (17:45)
[2022-05-27] MEDS ORDERED: FUROSEMIDE INJ 10 MG/ML 4 ML VIAL IV ONE (18:00)
[2022-05-27] MEDS ORDERED: FUROSEMIDE INJ 10 MG/ML 4 ML VIAL ONE (18:07)
[2022-05-27 18:31] VITALS: BP 158/102
== END 2022-05-27 18:05 | disposition other institution (70) ==
LOC: ER 14:57
DX: R07.89 Other chest pain (principal); I16.0 Hypertensive urgency; N18.6 End stage renal disease; I12.0 Hypertensive chronic kidney disease with stage 5 chronic kidney disease or end stage renal disease; I50.9 Heart failure, unspecified; I25.2 Old myocardial infarction; R94.31 Abnormal electrocardiogram [ECG] [EKG]; Z95.5 Presence of coronary angioplasty implant and graft; Z20.822 Contact with and (suspected) exposure to COVID-19
CPT/HCPCS: 36415; 70450; 71045; 80053; 82550; 82553; 83880; 84484; 85025; 85610; 85730; 86850; 86900; 93005; 99284; J0360; J1650; J1940; J2270; U0002

== ENCOUNTER 2022-08-24 21:07 | Emergency (ER) | payer SELFPAY ==
[~2022-08-24] VITALS: Ht 182.9 cm; Wt 72.6 kg
[2022-08-24] MEDS ORDERED: FUROSEMIDE INJ 10 MG/ML 4 ML VIAL IV ONE (22:00)
[2022-08-24] MEDS ORDERED: ASPIRIN 325 MG TAB PO ONE (22:00)
[2022-08-24] MEDS ORDERED: NICARDIPINE 20MG/200ML PREMIX 200 ML IV SCH (22:00)
[2022-08-24] MEDS ORDERED: ASPIRIN 325 MG TAB ONE (22:20)
[2022-08-24] MEDS ORDERED: FUROSEMIDE INJ 10 MG/ML 4 ML VIAL ONE (22:21)
[2022-08-24] MEDS ORDERED: NICARDIPINE 20MG/200ML PREMIX 200 ML ONE (22:21)
== END 2022-08-25 00:36 | disposition left against medical advice (07) ==
LOC: FSED 21:11
DX: R06.00 Dyspnea, unspecified (principal); J90 Pleural effusion, not elsewhere classified; I16.1 Hypertensive emergency; I50.9 Heart failure, unspecified; N17.9 Acute kidney failure, unspecified; R94.31 Abnormal electrocardiogram [ECG] [EKG]
CPT/HCPCS: 71046; 74176; 80053; 82553; 83880; 84484; 85025; 85379; 93005; 99284; J1940; U0002

== ENCOUNTER 2022-10-02 17:13 | Inpatient (IN) | payer BC, OTHER ==
[~2022-10-02] VITALS: Ht 182.9 cm; Wt 72.6 kg
[2022-10-02] MEDS ORDERED: FUROSEMIDE INJ 10 MG/ML 4 ML VIAL IV ONE (17:30)
[2022-10-02] MEDS ORDERED: HYDRALAZINE HCL 20 MG/ML VIAL IV PRN (17:30)
[2022-10-02] MEDS ORDERED: SODIUM CHLORIDE FLUSH 10 ML SYR INJ PRN (17:45)
[2022-10-02] MEDS ORDERED: ASPIRIN 81 MG CHEW TAB PO ONE (17:45)
[2022-10-02] MEDS ORDERED: ONDANSETRON HCL INJ 2MG/ML 2ML 2 MG/ML VIAL IV PRN (17:45)
[2022-10-02] MEDS ORDERED: NICARDIPINE 20MG/200ML PREMIX 200 ML IV SCH ×2 (17:45)
[2022-10-02 17:47] LABS: BASOPHILS # (AUTO) 0.1 (0.0-0.1); BASOPHILS % 0.8 % (0.0-1.0); EOSINOPHILS # (AUTO) 0.1 (0.0-0.4); EOSINOPHILS % 1.2 % (0.0-6.0); HEMOGLOBIN 11.9 g/dL (14.0-18.0); LYMPHOCYTES # (AUTO) 1.1 (1.0-3.2); LYMPHOCYTES % 9.7 % (18.0-39.1); MEAN CORPUSCULAR HEMOGLOBIN 22.8 pg (28-32); MEAN CORPUSCULAR HGB CONC 29.8 g/dL (31-35); MEAN CORPUSCULAR VOLUME 76.8 fL (81-99); MONOCYTES # (AUTO) 0.6 (0.2-0.8); MONOCYTES % 5.4 % (4.4-11.3); NEUTROPHILS # (AUTO) 9.2 (2.1-6.9); NEUTROPHILS % 82.6 % (38.7-80.0); PLATELET COUNT 333 x10e3/uL (140-360); RED BLOOD COUNT 5.21 x10e6/uL (4.3-5.7)
[2022-10-02 18:06] LABS: ALANINE AMINOTRANSFERASE 18 IU/L (0-55); ALBUMIN 3.4 g/dL (3.5-5.0); ALBUMIN/GLOBULIN RATIO 0.9 (0.8-2.0); ALKALINE PHOSPHATASE 101 IU/L (40-150); ANION GAP 17.2 mmol/L (8-16); BLOOD UREA NITROGEN 34 mg/dL (7-26); BUN/CREATININE RATIO 15 (6-25); CALCIUM 8.4 mg/dL (8.4-10.2); CARBON DIOXIDE 23 mmol/L (22-29); CHLORIDE 102 mmol/L (98-107); CREATININE, SERUM 2.32 mg/dL (0.72-1.25); GLUCOSE 128 mg/dL (74-118); POTASSIUM 3.2 mmol/L (3.5-5.1); SODIUM 139 mmol/L (136-145)
[2022-10-02 18:22] LABS: AMPHETAMINES SCREEN,URINE NEGATIVE (NEGATIVE); BENZODIAZEPINES SCREEN,URINE NEGATIVE (NEGATIVE); PHENCYCLIDINE SCREEN,URINE NEGATIVE (NEGATIVE)
[2022-10-03] MEDS ORDERED: ASPIRIN 81 MG ENTERIC COATED PO SCH (09:00)
== END 2022-10-02 18:26 | disposition left against medical advice (07) | DRG 291 ==
LOC: ER 17:18 → ERHOLD 17:45 → UNDODISIN 18:29
PROVIDERS: ADMIT Family Medicine Adult Medicine; ATTEND Family Medicine Adult Medicine
DX: I13.0 Hypertensive heart and chronic kidney disease with heart failure and stage 1 through stage 4 chronic kidney disease, or unspecified chronic kidney disease (principal); I50.31 Acute diastolic (congestive) heart failure; I16.1 Hypertensive emergency; N18.32 Chronic kidney disease, stage 3b; I25.10 Atherosclerotic heart disease of native coronary artery without angina pectoris; Z95.5 Presence of coronary angioplasty implant and graft; I25.2 Old myocardial infarction; E78.5 Hyperlipidemia, unspecified; Z20.822 Contact with and (suspected) exposure to COVID-19; E78.00 Pure hypercholesterolemia, unspecified; Z88.8 Allergy status to other drugs, medicaments and biological substances; Z53.21 Procedure and treatment not carried out due to patient leaving prior to being seen by health care provider
CPT/HCPCS: 0223U; 36415; 71045; 80053; 80307; 83880; 84484; 85025; 93005; J0360; J1940

== ENCOUNTER 2024-06-04 16:50 | Emergency (ER) | payer SELFPAY ==
[~2024-06-04] VITALS: Ht 182.9 cm; Wt 78.5 kg
[2024-06-04] MEDS ORDERED: LISINOPRIL10 MG PO (17:13)
[2024-06-04] MEDS ORDERED: FUROSEMIDE40 MG PO (17:13)
[2024-06-04] MEDS: Morphine 4mg INJECTION 4 MG/ML INJ IV ONE (17:24)
[2024-06-04 17:45] VITALS: TEMP 98.6
[2024-06-04 19:13] VITALS: PULSE 80; RESP 18; O2SAT 96
== END 2024-06-04 19:52 | disposition home or self-care (01) ==
LOC: FSED 16:59
DX: S20.212A Contusion of left front wall of thorax, initial encounter (principal); W01.0XXA Fall on same level from slipping, tripping and stumbling without subsequent striking against object, initial encounter; Y93.01 Activity, walking, marching and hiking; Y92.89 Other specified places as the place of occurrence of the external cause; I12.9 Hypertensive chronic kidney disease with stage 1 through stage 4 chronic kidney disease, or unspecified chronic kidney disease; N18.9 Chronic kidney disease, unspecified; I50.9 Heart failure, unspecified; E78.5 Hyperlipidemia, unspecified; G47.00 Insomnia, unspecified; R94.31 Abnormal electrocardiogram [ECG] [EKG]; I25.2 Old myocardial infarction; Z95.5 Presence of coronary angioplasty implant and graft; Z87.442 Personal history of urinary calculi
CPT/HCPCS: 71250; 80048; 82553; 84484; 85025; 93005; 96374; 99284; J2270